=== PATIENT | female | born 1985 | race Caucasian/White ===

== ENCOUNTER 2023-05-09 15:43 | Outpatient (OUT) | payer OTHER, SELFPAY ==
[2023-05-09 16:49] LABS: Free T4 1.25 ng/dL (0.76-1.46)
[2023-05-09 16:56] LABS: Alanine Aminotransferase 36 U/L (14-59); Albumin Globulin Ratio 1.2; Albumin Level 4.5 g/dL (3.4-5.0); Alkaline Phosphatase 79 U/L (46-116); Aspartate Amino Transferase 23 U/L (15-37); Bilirubin Direct 0.1 mg/dL (0.0-0.2); Bilirubin Total 0.5 mg/dL (0.2-1.0); Free T3 2.75 pg/mL (2.18-3.98); Globulin 3.9 g/dL; Thyroid Stimulating Hormone 3.515 uIU/mL (0.358-3.740); Total Protein 8.4 g/dL (6.4-8.2)
== END 2023-05-09 15:44 | disposition home or self-care (01) ==
PROVIDERS: Visit Provider Internal Medicine
DX: E05.90 Thyrotoxicosis, unspecified without thyrotoxic crisis or storm (principal)
CPT/HCPCS: 36415; 80076; 84439; 84443; 84481